=== PATIENT | male | born 1955 | race Two or more races ===

== ENCOUNTER → 2021-11-17 | Emergency (ER) | payer OTHER ==
[~2021-11-17] VITALS: Ht 172.7 cm; Wt 183.0 kg
[2021-11-18 01:08] LABS: Urine Bacteria NONE SEEN /hpf (None Seen); Urine Blood 3+ /uL (Negative); Urine Hyaline Cast FEW /lpf (0 - 2); Urine Specific Gravity 1.006 (1.001-1.035); Urine WBC 3 /hpf (0 - 3)
[2021-11-18 01:59] VITALS: BP 148/86
== END | disposition home or self-care (01) ==
LOC: ER 23:11
DX: R33.9 Retention of urine, unspecified (principal)
CPT/HCPCS: 51702; 81001